=== PATIENT | female | born 1995 | race Caucasian/White ===

== ENCOUNTER 2019-02-04 12:57 | Emergency (ER) | payer BC, OTHER ==
[~2019-02-04 12:57] MED LIST: PRED20TA PO
--- NOTE | 2019-02-04 13:13 | PHYS DOC ---
Past History Past Medical History: Anxiety, Other Additional Past Medical Histor: depression Past Surgical History: Other Additional Past Surgical Histo: wisdom teeth Alcohol Use: None Drug Use: None Adult General Chief Complaint Chief Complaint: ABDOMINAL PAIN HPI HPI Patient is a 23-year-old female who presents with complaint of left flank pain that started approximately week ago and has been intermittent since onset. Patient rates her pain currently at a 9 out of 10. She states that she has had some nausea and vomiting. She denies any diarrhea. She also denies any fever. Patient states that she has no dysuria. She does state that she is unaware of an y exacerbating or alleviating factors.[] Review of Systems Review of Systems Constitutional: Denies fever or chills [] Eyes: Denies change in visual acuity, redness, or eye pain [] HENT: Denies nasal congestion or sore throat [] Respiratory: Denies cough or shortness of breath [] Cardiovascular: No additional information not addressed in HPI [] GI: Denies abdominal pain, nausea, vomiting, bloody stools or diarrhea [] : Denies dysuria or hematuria [] Musculoskeletal: Denies back pain or joint pain [] Integument: Denies rash or skin lesions [] Neurologic: Denies headache, focal weakness or sensory changes [] Endocrine: Denies polyuria or polydipsia [] All other systems were reviewed and found to be within normal limits, except as documented in this note. Allergies Allergies Allergies Coded Allergies Type Severity Reaction Last Updated Verified No Known Drug Allergies 04/09/16 No Physical Exam Physical Exam Constitutional: Well developed, well nourished, no acute distress, non-toxic appearance. [] HENT: Normocephalic, atraumatic, bilateral external ears normal, oropharynx moist, no oral exudates, nose normal. [] Eyes: PERRLA, EOMI, conjunctiva normal, no discharge. [] Neck: Normal range of motion, no tenderness, supple, no stridor. [] Cardiovascular:Heart rate regular rhythm, no murmur [] Lungs & Thorax: Bilateral breath sounds clear to auscultation [] Abdomen: Bowel sounds normal, soft, no tenderness, no masses, no pulsatile masses. [] Skin: Warm, dry, no erythema, no rash. [] Back: No tenderness, no CVA tenderness. [] Extremities: No tenderness, no cyanosis, no clubbing, ROM intact, no edema. [] Neurologic: Alert and oriented X 3, normal motor function, normal sensory function, no focal deficits noted. [] Psychologic: Affect normal, judgement normal, mood normal. [] Current Patient Data Vital Signs Vital Signs Date Time Temp Pulse Resp B/P (MAP) Pulse Ox O2 Delivery O2 Flow Rate FiO2 02/04/19 13:05 97.7 92 18 98 Room Air EKG EKG [] Radiology/Procedures Radiology/Procedures [] Impressions: PROCEDURE: CT ABD PELV W/ IV CONTRST ONLY Study: CT abdomen/pelvis with intravenous contrast Indication: Lower abdominal pain. Comparison: None. Technique: Helical CT imaging performed of the abdomen and pelvis after the intravenous administration of 75 cc Isovue-370 contrast. Sagittal and coronal reformats were obtained. One or more of the following individualized dose reduction techniques were utilized for this examination: 1. Automated exposure control 2. Adjustment of the mA and/or kV according to patient size 3. Use of iterative reconstruction technique. Findings: Unremarkable lower lungs and visualized heart. No abnormality of the liver, gallbladder, pancreas, spleen or adrenal glands. Diminished enhancement of the left kidney relative to the right. Left-sided hydroureteronephrosis in the setting of a nephrolithiasis at the ureterovesicular junction, image 61 series 2, measuring approximately 3.5 mm. Prominent intrarenal stone at the upper pole the left kidney measuring up to 1.2 cm. Smaller intrarenal stones at the lower pole the left kidney as seen on image 21 series 3. Extrarenal pelvis on the right and mild prominence of the proximal right ureter but without an obstructing nephrolithiasis. Unremarkable urinary bladder. The uterus is within normal limits given patient age. Collapsing ovarian cyst on the left, image 57 series 2. No suspicious mass or cyst on the right. Unremarkable colon with areas of mild wall thickening related to collapse. No findings of appendicitis noting that the appendix is not well visualized. Nonobstructed small bowel. Short segment presumably transient small bowel telescoping at the mid right abdomen, image 31 series 2. The stomach is not well evaluated due to collapse. Small volume free pelvic fluid. No acute osseous abnormality. Chronic L5 pars defects with associated mild grade 1 anterolisthesis of L5 on S1. Impression: 1. Hydroureteronephrosis on the left as well as findings of obstructive uropathy with diminished enhancement of the left kidney relative to the right in the setting of a 3.5 mm nephrolithiasis lodged at the ureterovesicular junction. Intrarenal stones are present on the left as well with a large stone at the upper pole measuring up to 1.2 cm. Mildly prominent proximal ureter and renal pelvis on the right however without an obstructing stone. 2. Short segment telescoping of small bowel within the mid right abdomen most likely a transient intussusception. No bowel obstruction. No mass in this region as seen. 3. Collapsing ovarian cyst on the right that is small in size. Small amount of free pelvic fluid likely physiologic. 4. Chronic bilateral L5 pars defects with only mild associated grade 1 anterolisthesis of L5 on S1. Electronically signed by: NAEEM GONZALEZ MD (02/04/2019 4:05 PM) [facility] DICTATED AND SIGNED BY: NAEEM GONZALEZ MD DATE: 02/04/19 160 CC: MELIA PADILLA Jr. DO; PCP,NO ~ Course & Med Decision Making Course & Med Decision Making Pertinent Labs and Imaging studies reviewed. (See chart for details) [] Dragon Disclaimer Dragon Disclaimer This electronic medical record was generated, in whole or in part, using a voice recognition dictation system. Departure Departure: Impression: Primary Impression: Ureterolithiasis Disposition: 01 HOME, SELF-CARE Condition: STABLE Referrals: PCP,ERIK (PCP) Patient Instructions: Kidney Stones Scripts Ketorolac Tromethamine (KETOROLAC TROMETHAMINE) 10 Mg Tablet 1 TAB PO PRN Q6HRS PRN for PAIN, #20 TAB Prov: MELIA PADILLA Jr. DO 02/04/19 Oxycodone Hcl/Acetaminophen (PERCOCET 5-325 MG TABLET ) 1 Each Tablet 1 TAB PO PRN QID PRN for PAIN MDD 4 Tablet(s) for 5 Days, #15 TAB 0 Refills Prov: MELIA PADILLA Jr. DO 02/04/19 Ondansetron (ONDANSETRON ODT) 4 Mg Tab.rapdis 1 TAB PO PRN Q6-8HRS PRN for NAUSEA, #12 TAB Prov: MELIA PADILLA Jr. DO 02/04/19 MELIA PADILLA Jr. DO Feb 04, 2019 13:13
[2019-02-04] MEDS ORDERED: ONDANSETRON PF 4 MG/2 ML VIAL. IVP ONE (13:30)
[2019-02-04] MEDS ORDERED: IV NORMAL SALINE 1,000ML 1,000 ML IV SCH (13:30)
[2019-02-04] MEDS ORDERED: KETOROLAC 30 MG/ML VIAL. ONE (13:42)
[2019-02-04] MEDS ORDERED: KETOROLAC 30 MG/ML VIAL. IVP ONE (13:45)
[2019-02-04 13:49] LABS: BASO % 0 % (0-3); EOS % 0 % (0-3); HEMATOCRIT 40.3 % (36.0-47.0); HEMOGLOBIN 13.5 g/dL (12.0-15.5); LYMPH # 0.7 x10^3/uL (1.0-4.8); LYMPH % 5 % (24-48); MEAN CORPUSCULAR HEMOGLOBIN 30 pg (25-35); MEAN CORPUSCULAR HGB CONC 34 g/dL (31-37); MEAN CORPUSCULAR VOLUME 89 fL (79-100); MONO # 0.6 x10^3/uL (0.0-1.1); MONO % 5 % (0-9); NEUT # 12.4 x10^3uL (1.8-7.7); NEUT % 90 % (31-73); PLATELET COUNT 277 x10^3/uL (140-400); RED BLOOD COUNT 4.54 x10^6/uL (3.50-5.40); RED CELL DISTRIBUTION WIDTH 13.6 % (11.5-14.5); WHITE BLOOD COUNT 13.8 x10^3/uL (4.0-11.0)
[2019-02-04 14:05] LABS: ALBUMIN/GLOBULIN RATIO 1.1 (1.0-1.7); CALCIUM 8.3 mg/dL (8.5-10.1); CREATININE 0.5 mg/dL (0.6-1.0); GFR 154.3; POTASSIUM 3.7 mmol/L (3.5-5.1); TOTAL BILIRUBIN 0.4 mg/dL (0.2-1.0); TOTAL PROTEIN 7.5 g/dL (6.4-8.2)
[2019-02-04 14:18] LABS: BILIRUBIN,URINE NEG (NEG); CLARITY,URINE CLOUDY; COLOR,URINE YELLOW; GLUCOSE,URINE NEG (NEG); NITRITE,URINE NEG (NEG); UROBILINOGEN,URINE 0.2 mg/dL (0.2 mg/dL)
[2019-02-04 14:19] LABS: AMORPHOUS SEDIMENT,UR PRESENT /HPF; BACTERIA,URINE FEW /HPF (0-FEW); HYALINE CASTS, URINE OCC /HPF; SQUAMOUS EPITHELIAL CELL,UR MOD /LPF; WBC,URINE 20-40 /HPF (0-4)
[2019-02-04] MEDS ORDERED: IOHEXOL 300 MG/ML 75 ML VIAL. IV ONE (15:30)
--- NOTE | 2019-02-04 16:08 | RAD ---
Study: CT abdomen/pelvis with intravenous contrast Indication: Lower abdominal pain. Comparison: None. Technique: Helical CT imaging performed of the abdomen and pelvis after the intravenous administration of 75 cc Isovue-370 contrast. Sagittal and coronal reformats were obtained. One or more of the following individualized dose reduction techniques were utilized for this examination: 1. Automated exposure control 2. Adjustment of the mA and/or kV according to patient size 3. Use of iterative reconstruction technique. Findings: Unremarkable lower lungs and visualized heart. No abnormality of the liver, gallbladder, pancreas, spleen or adrenal glands. Diminished enhancement of the left kidney relative to the right. Left-sided hydroureteronephrosis in the setting of a nephrolithiasis at the ureterovesicular junction, image 61 series 2, measuring approximately 3.5 mm. Prominent intrarenal stone at the upper pole the left kidney measuring up to 1.2 cm. Smaller intrarenal stones at the lower pole the left kidney as seen on image 21 series 3. Extrarenal pelvis on the right and mild prominence of the proximal right ureter but without an obstructing nephrolithiasis. Unremarkable urinary bladder. The uterus is within normal limits given patient age. Collapsing ovarian cyst on the left, image 57 series 2. No suspicious mass or cyst on the right. Unremarkable colon with areas of mild wall thickening related to collapse. No findings of appendicitis noting that the appendix is not well visualized. Nonobstructed small bowel. Short segment presumably transient small bowel telescoping at the mid right abdomen, image 31 series 2. The stomach is not well evaluated due to collapse. Small volume free pelvic fluid. No acute osseous abnormality. Chronic L5 pars defects with associated mild grade 1 anterolisthesis of L5 on S1. Impression: 1. Hydroureteronephrosis on the left as well as findings of obstructive uropathy with diminished enhancement of the left kidney relative to the right in the setting of a 3.5 mm nephrolithiasis lodged at the ureterovesicular junction. Intrarenal stones are present on the left as well with a large stone at the upper pole measuring up to 1.2 cm. Mildly prominent proximal ureter and renal pelvis on the right however without an obstructing stone. 2. Short segment telescoping of small bowel within the mid right abdomen most likely a transient intussusception. No bowel obstruction. No mass in this region as seen. 3. Collapsing ovarian cyst on the right that is small in size. Small amount of free pelvic fluid likely physiologic. 4. Chronic bilateral L5 pars defects with only mild associated grade 1 anterolisthesis of L5 on S1. Electronically signed by: NAEEM GONZALEZ MD (02/04/2019 4:05 PM) [facility]
[2019-02-04] MEDS: HYDROmorphone PF 1 MG/ML DISP.SYRIN IV ONE ×2 (16:30→17:35)
[2019-02-04] MEDS ORDERED: HYDROmorphone PF 1 MG/ML DISP.SYRIN IV ONE ×2 (16:30→17:45)
[2019-02-04] MEDS ORDERED: ONDA4TAB12 PO (17:12)
[2019-02-04] MEDS ORDERED: OXYC1TAB15 PO (17:12)
[2019-02-04] MEDS ORDERED: KETO10TA PO (17:12)
[2019-02-04 18:14] VITALS: BP 114/80
[2019-02-08] MEDS ORDERED: ALPR0.254 PO (09:18)
[2019-02-08] MEDS ORDERED: MIRT7.5T8 PO (09:18)
[2019-02-08] MEDS ORDERED: CIPR500T94 PO (09:20)
[2019-02-08] MEDS ORDERED: TEMA15CA6 PO (09:24)
== END 2019-02-04 18:14 | disposition home or self-care (01) ==
LOC: ER 12:57
DX: N13.2 Hydronephrosis with renal and ureteral calculous obstruction (principal); R11.2 Nausea with vomiting, unspecified
CPT/HCPCS: 36415; 74177; 80053; 81001; 81025; 85025; 87086; 96361; 96374; 96375; 96376; 99285; J1170; J1885; J2405; Q9967; J7030

== ENCOUNTER 2019-02-06 16:06 | Emergency (ER) | payer OTHER ==
[~2019-02-06 16:06] MED LIST changes: +KETO10TA PO; +ONDA4TAB12 PO; +OXYC1TAB15 PO
[2019-02-06] MEDS ORDERED: BUPR300T4 PO (17:55)
[2019-02-06] MEDS ORDERED: BUSP10TA PO (17:55)
[2019-02-08] MEDS ORDERED: ALPR0.254 PO (09:18)
[2019-02-08] MEDS ORDERED: MIRT7.5T8 PO (09:18)
[2019-02-08] MEDS ORDERED: CIPR500T94 PO (09:20)
[2019-02-08] MEDS ORDERED: TEMA15CA6 PO (09:24)
== END 2019-02-06 16:15 | disposition left against medical advice (07) ==
LOC: ER 16:06
DX: R50.9 Fever, unspecified (principal); Z53.21 Procedure and treatment not carried out due to patient leaving prior to being seen by health care provider

== ENCOUNTER 2019-02-06 17:06 | Inpatient (IN) | payer OTHER ==
[~2019-02-06] VITALS: Ht 152.4 cm; Wt 46.0 kg
[2019-02-06 17:32] VITALS: BP 108/67
[2019-02-06] MEDS ORDERED: KETOROLAC 30 MG/ML VIAL. IVP ONE (17:45)
[2019-02-06] MEDS ORDERED: ONDANSETRON ODT 4 MG TAB.RAPDIS PO ONE (17:45)
[2019-02-06] MEDS ORDERED: ACETAMINOPHEN 500 MG TABLET PO PRN (17:45)
[2019-02-06] MEDS ORDERED: BUPR300T4 PO (17:55)
[2019-02-06] MEDS ORDERED: BUSP10TA PO (17:55)
[2019-02-06] MEDS: IV NORMAL SALINE 1,000ML 1,000 ML IV SCH (18:03)
--- NOTE | 2019-02-06 18:32 | NUR ---
NURSING NOTE PT ADMIT TO ROOM [address] SUÁREZ OFFICE WITH DX OF RENAL STONES. PT C/O ABD PAIN. PT STATES SHE IS ON HER PERIOD. 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 PT MEDS ENTER AND CONTINUED PER PJ. NO COMPLICATIONS. 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
[2019-02-06 18:33] LABS: BILIRUBIN,URINE NEG (NEG); CLARITY,URINE HAZY; COLOR,URINE YELLOW; GLUCOSE,URINE NEG (NEG)
[2019-02-06 18:34] LABS: BACTERIA,URINE FEW /HPF (0-FEW); NITRITE,URINE NEG (NEG); SQUAMOUS EPITHELIAL CELL,UR OCC /LPF; UROBILINOGEN,URINE 0.2 mg/dL (0.2 mg/dL)
--- NOTE | 2019-02-06 19:20 | RAD ---
Acute abdominal series to include a PA chest radiograph 02/06/2019 Clinical History: Abdominal pain. A PA digital radiograph of the chest was obtained. Supine and erect AP digital radiographs of the abdomen/pelvis were obtained. Comparison is made to patient's CT scan of the abdomen and pelvis dated 02/04/2019. The cardiac and mediastinal silhouettes are within normal limits in size and configuration. No pulmonary infiltrate is seen. No pleural effusion or pneumothorax is noted. The abdominal bowel gas pattern is nonobstructive. There is no evidence of free air. The 3 mm ureteral calculus seen on the patient's recent CT scan is not visualized. This presumably has been passed. A 1.2 cm left renal calculus is unchanged. The osseous structures are grossly intact. Impression: The 3 mm distal left ureteral calculus seen on the patient's recent CT scan is not visualized and presumably has been passed. Electronically signed by: Khadar Carson MD (02/06/2019 7:17 PM) [facility]
[2019-02-06] MEDS: busPIRone 10 MG TABLET. PO SCH (20:02)
[2019-02-06] MEDS: ZOLPIDEM 5 MG TABLET. PO PRN ×2 (20:59→21:44)
[2019-02-06 22:45] VITALS: BP 93/61
[2019-02-07] MEDS: IV NORMAL SALINE 1,000ML 1,000 ML IV SCH ×3 (02:27→20:00)
[2019-02-07 05:56] VITALS: BP 115/71
[2019-02-07 06:59] LABS: BASO % 0 % (0-3); EOS % 0 % (0-3); HEMATOCRIT 33.9 % (36.0-47.0); HEMOGLOBIN 11.6 g/dL (12.0-15.5); LYMPH # 0.9 x10^3/uL (1.0-4.8); LYMPH % 11 % (24-48); MEAN CORPUSCULAR HEMOGLOBIN 31 pg (25-35); MEAN CORPUSCULAR HGB CONC 34 g/dL (31-37); MEAN CORPUSCULAR VOLUME 89 fL (79-100); MONO % 12 % (0-9); NEUT # 6.4 x10^3uL (1.8-7.7); NEUT % 77 % (31-73); PLATELET COUNT 158 x10^3/uL (140-400); RED BLOOD COUNT 3.81 x10^6/uL (3.50-5.40); RED CELL DISTRIBUTION WIDTH 13.6 % (11.5-14.5); WHITE BLOOD COUNT 8.2 x10^3/uL (4.0-11.0)
[2019-02-07 07:05] LABS: CALCIUM 7.8 mg/dL (8.5-10.1); CREATININE 0.6 mg/dL (0.6-1.0)
[2019-02-07] MEDS: busPIRone 10 MG TABLET. PO SCH ×2 (08:09→20:00)
[2019-02-07] MEDS: TAMSULOSIN 0.4 MG CAP.ER.24H. PO SCH (08:09)
[2019-02-07] MEDS: buPROPion XL 300 MG TAB.ER.24H. PO SCH (08:10)
[2019-02-07] MEDS: LACTOBACILLUS RHAMNOSUS GG 1 CAPSULE. PO SCH ×2 (08:10→20:00)
[2019-02-07] MEDS: ONDANSETRON PF 4 MG/2 ML VIAL. IVP PRN ×3 (08:14→19:27)
[2019-02-07] MEDS ORDERED: FLU VAX QS 2019-20 (36MOS+)/PF 0.5 ML SYRINGE. VAX IM ONE (09:00)
[2019-02-07] MEDS ORDERED: ZOLPIDEM 5 MG TABLET. PO PRN (09:45)
[2019-02-07] MEDS ORDERED: TEMAZEPAM 7.5 MG CAPSULE PO PRN (09:45)
[2019-02-07 11:00] VITALS: BP 118/79
[2019-02-07 16:41] VITALS: BP 116/77
--- NOTE | 2019-02-07 17:32 | PN ---
DATE: SUBJECTIVE: The patient was admitted with nephrolithiasis, dehydration, hematuria and intussusception of her colon. The patient has been receiving IV antibiotic therapy, double dose. Even though she has improved, she is still running low-grade temperature of 99.9, pulse has been as high as approximately 120, respiratory rate 20. The patient says she is feeling a little better. She does suffer from depression. LABORATORY DATA: The patient's white count 8, hemoglobin 11 and hematocrit 33. Sodium, potassium, BUN and creatinine normal. Urine culture did show large amounts of leukocyte esterase, 11-20 white blood cells. OBJECTIVE: GENERAL: Otherwise, the patient is alert and oriented. LUNGS: Diminished throughout, poor movement of air, but clear. CARDIOVASCULAR: Stable. ABDOMEN: Soft, nontender. ASSESSMENT AND PLAN: X-ray shows improvement of her situation with her kidney stones, although none have been sent out for or caught for analysis there. The patient is still having depression, not able to sleep well. We started on some Remeron 7.5 along with her Wellbutrin in the morning. Discussed situation with her. She does not feel suicidal or homicidal in any regard there. We will continue to monitor the patient accordingly and make further evaluation on her per those results. SALOMON SUÁREZ MD DR: ROGELIO/jennie JOB#: [id number] / [id number]
[2019-02-07] MEDS ORDERED: ALPRAZolam 0.25 MG TABLET PO PRN (18:45)
[2019-02-07] MEDS ORDERED: MELATONIN 3 MG TABLET PO PRN (18:45)
[2019-02-07 19:23] VITALS: BP 120/85
[2019-02-07] MEDS: diphenhydrAMINE 50 MG/ML VIAL IVP PRN (19:27)
[2019-02-07] MEDS ORDERED: MIRTAZAPINE 7.5 MG TABLET. PO SCH (21:00)
[2019-02-07 23:06] VITALS: BP 105/69
[2019-02-08] MEDS: diphenhydrAMINE 50 MG/ML VIAL IVP PRN (03:01)
[2019-02-08 06:05] VITALS: BP 109/70
[2019-02-08] MEDS: LACTOBACILLUS RHAMNOSUS GG 1 CAPSULE. PO SCH (08:12)
[2019-02-08] MEDS: busPIRone 10 MG TABLET. PO SCH (08:12)
[2019-02-08] MEDS: buPROPion XL 300 MG TAB.ER.24H. PO SCH (08:12)
[2019-02-08] MEDS: TAMSULOSIN 0.4 MG CAP.ER.24H. PO SCH (08:12)
[2019-02-08] MEDS ORDERED: ALPR0.254 PO (09:18)
[2019-02-08] MEDS ORDERED: MIRT7.5T8 PO (09:18)
[2019-02-08] MEDS ORDERED: CIPR500T94 PO (09:20)
[2019-02-08] MEDS ORDERED: TEMA15CA6 PO (09:24)
--- NOTE | 2019-02-08 12:34 | NUR ---
NSG NOTE; DISCHARGE VERBAL AND WRITTEN DISCHARGE INSTRUCTIONS GIVEN TO PT WITH VERBAL UNDERSTANDING WRITTEN RX X3 GIVEN TO PT WITH ONE TRANSMITTED TO HER PHARMACY WRITTEN AND VERBAL INFORMATION GIVEN TO PT ABOUT THE GUIDANCE CENTER HERE IN [place] TO FOLLOW UP FOR POST DEPRESSION
== END 2019-02-08 12:25 | disposition home or self-care (01) | DRG 641 ==
LOC: 1 SOUTH 17:06
PROVIDERS: ADMIT Family Medicine; ATTEND Family Medicine
DX: E86.0 Dehydration (principal); K56.1 Intussusception; F53.0 Postpartum depression; N20.0 Calculus of kidney
CPT/HCPCS: 36415; 74022; 80048; 81001; 82306; 83605; 84443; 85025; 87086; 90471; 90686; J0696; J1200; J1885; J1956; J2405; Q0162; J7030